=== PATIENT | male | born 1985 | race Caucasian/White ===

== ENCOUNTER 2016-08-28 20:21 | Emergency (ER) | payer BC ==
[2016-08-28] MEDS ORDERED: Diphtheria,Pertussis(Acell),Tetanus Vaccine 0.5 ML Syringe IM ONE (20:25)
[2016-08-28] MEDS ORDERED: ceFAZolin 1 GM Vial IM ONE (20:28)
[2016-08-28] MEDS ORDERED: Water For Injection, Sterile 20 ML ONE (20:39)
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
[2016-08-28] MEDS ORDERED: Lidocaine 1% 20 ML MDV ONE (21:19)
[2016-08-28] MEDS ORDERED: Bacitracin Oint 1 GM U/D Packet TOP ONE (21:36)
[2016-08-28 21:55] VITALS: BP 124/65
--- NOTE | 2016-08-29 11:27 | CR ---
EXAM DATE: 08/28/16 PATIENT'S AGE: 31 Patient: AMI ROLLE Facility: [place], [place] Site . Site : 1985 Study: XRay Extremity 2nd digit [id number] 8:47:24 PM Ordering Physician: Lucas Goldstein Final Report: INDICATION: Trauma left index finger. Technique :three-view study left index finger. Findings: No evidence of fracture or dislocation. No radioopaque foreign body . Impression: Negative radiographic examination of the left index finger. Dictated by Carlos Leblanc MD @ Aug 28 2016 8:48PM (Electronic Signature) Report Signed by Proxy and Original Signed Document filed in the Medical Record. MTDD
== END 2016-08-28 21:50 | disposition home or self-care (01) ==
LOC: MW.ED 20:21
DX: S61.211A Laceration without foreign body of left index finger without damage to nail, initial encounter (principal); S66.101A Unspecified injury of flexor muscle, fascia and tendon of left index finger at wrist and hand level, initial encounter; W26.0XXA Contact with knife, initial encounter; Z23 Encounter for immunization
CPT/HCPCS: 29130; 73140; 90471; 90715; 96372; 99283; J0690

== ENCOUNTER 2016-08-30 09:59 | Day surgery (SDC) | payer BC ==
--- NOTE | 2016-08-29 17:45 | PCM.PREANE ---
<Iván Balderrama E - Last Filed: 08/29/16 17:45> Preanesthetic Assessment - ANESTHESIA/TRANSFUSION/FAMILY HX Anesthesia/Transfusion History: Prior Anesthesia Family History of Anesthesia Reaction: No - REVIEW OF SYSTEMS Constitutional: Reports: no symptoms ESCORT PATIENTS: Reports: no symptoms Respiratory: Reports: no symptoms Cardiovascular: Reports: no symptoms GI: Reports: no symptoms Other: Reports: none - PHYSICAL ASSESSMENT Height: 1.68 m Weight: 77.111 kg ASA Class: 1 - ALLERGIES Allergies/Adverse Reactions: Allergies Allergy/AdvReac Type Severity Reaction Status Date / Time No Known Allergies Allergy Verified 08/28/16 20:25 - ANESTHESIA PLAN Anesthesia Type Planned: general anesthesia - ACKNOWLEDGEMENTS Pt an appropriate candidate for the planned anesthesia: Yes Alternatives and risks of anesthesia discussed w pt/guardian: Yes Pt/Guardian understands and agree with anesthesia plan: Yes PreAnesthesia Questionnaire HEENT History: Reports: None Cardiovascular History: Reports: None Respiratory History: Reports: None Gastrointestinal History: Reports: None Genitourinary History: Reports: None Musculoskeletal History: Reports: None Neurological History: Reports: None Psychiatric History: Reports: None Endocrine/Metabolic History: Reports: None Hematologic History: Reports: None Immunologic History: Reports: None Oncologic (Cancer) History: Reports: None Dermatologic History: Reports: None - Past Surgical History Head Surgeries/Procedures: Reports: None HEENT Surgical History: Reports: Other (see below) Other HEENT Surgeries/Procedures: cleft palate repair Respiratory Surgical History: Reports: None - SUBSTANCE USE Smoking Status *Q: Never Smoker Second Hand Smoke Exposure: No Recreational Drug Use History: No - HOME MEDS Home Medications: Home Meds . [No Known Home Meds] 08/28/16 [History] - CURRENT (IN HOUSE) MEDS Current Meds: Current Medications Acetaminophen/Hydrocodone Bitart ([place] 325-5 Mg) 1 tab PO Q4H PRN PRN Reason: Pain Fentanyl (Sublimaze) 50 mcg IVPUSH .Q5MIN PRN PRN Reason: Pain Stop: 09/03/16 08:23 Lactated Ringer's (Ringers, Lactated) 1,000 mls @ 125 mls/hr IV ASDIRECTED SANJUANA Discontinued Medications Bupivacaine HCl/Epinephrine Bitart (Marcaine 0.25%/Epinephrine 1:200,000) 10 ml INJECT ONETIME ONE Stop: 08/30/16 10:01 Bupivacaine HCl/Epinephrine Bitart (Marcaine 0.25%/Epinephrine 1:200,000) Confirm Administered Dose 20 ml .ROUTE .STK-MED ONE Stop: 08/30/16 07:34 Fentanyl (Sublimaze) Confirm Administered Dose 250 mcg .ROUTE .STK-MED ONE Stop: 08/30/16 07:33 Fentanyl (Sublimaze) Confirm Administered Dose 100 mcg .ROUTE .STK-MED ONE Stop: 08/30/16 09:27 Cefazolin Sodium/Dextrose 2 gm (/ Premix) 50 mls @ 100 mls/hr IV ONETIME ONE Stop: 08/30/16 10:29 Lidocaine (Xylocaine-Mpf 2%) Confirm Administered Dose 5 ml .ROUTE .STK-MED ONE Stop: 08/30/16 07:33 Midazolam HCl (Versed 1 Mg/Ml) Confirm Administered Dose 2 mg .ROUTE .STK-MED ONE Stop: 08/30/16 07:33 Midazolam HCl (Versed 1 Mg/Ml) Confirm Administered Dose 2 mg .ROUTE .STK-MED ONE Stop: 08/30/16 09:28 Ondansetron HCl (Zofran) Confirm Administered Dose 4 mg .ROUTE .STK-MED ONE Stop: 08/30/16 07:33 Propofol (Diprivan 20 Ml) Confirm Administered Dose 200 mg .ROUTE .STK-MED ONE Stop: 08/30/16 07:33 Propofol (Diprivan 20 Ml) Confirm Administered Dose 200 mg .ROUTE .STK-MED ONE Stop: 08/30/16 09:28 <Iván Wagner F - Last Filed: 08/30/16 10:42> Preanesthetic Assessment - ANESTHESIA/TRANSFUSION/FAMILY HX Anesthesia/Transfusion History: Prior Anesthesia Family History of Anesthesia Reaction: No - REVIEW OF SYSTEMS Constitutional: Reports: no symptoms ESCORT PATIENTS: Reports: no symptoms Respiratory: Reports: no symptoms Cardiovascular: Reports: no symptoms GI: Reports: no symptoms Other: Reports: none - PHYSICAL ASSESSMENT ASA Class: 2 Mental Status: alert & oriented x3 Airway Class: Mallampati = 1 Dentition: Reports: normal dentition ROM/Head Extension: full Respiratory Status: lungs clear to auscultation bilaterally Cardiovascular Status: regular rate & rhythm, normal S1, S2, no murmur - BLOOD Blood Available: No - ANESTHESIA PLAN Preop Beta Mercedes: No Anesthesia Type Planned: general anesthesia - ACKNOWLEDGEMENTS Pt an appropriate candidate for the planned anesthesia: Yes Alternatives and risks of anesthesia discussed w pt/guardian: Yes Pt/Guardian understands and agree with anesthesia plan: Yes
[~2016-08-30 09:59] MED LIST: Acetaminophen/HYDROcodone 325-5 MG Tab PO PRN; Bupivacaine 0.25%/EPINEPHrine 1:200,000 10 ML SDV ONE; Lactated Ringers 1,000 ML IV SCH; Lidocaine 2% 5 ML SDV ONE; Midazolam 1 MG/ML 2 ML SDV ONE; Ondansetron 4 MG/2 ML SDV ONE; Propofol 200 MG/20 ML SDV ONE; fentaNYL 100 MCG/2 ML SDV IVPUSH PRN; fentaNYL 100 MCG/2 ML SDV ONE; fentaNYL 250 MCG/5 ML SDV ONE
[2016-08-30] MEDS ORDERED: Bupivacaine 0.25%/EPINEPHrine 1:200,000 10 ML SDV INJECT ONE (10:00)
[2016-08-30] MEDS ORDERED: ceFAZolin 2 GM in Premix Bag 1 BAG IV ONE (10:00)
[2016-08-30] MEDS ORDERED: Dexamethasone 4 MG/ML 5 ML MDV ONE (13:31)
[2016-08-30] MEDS ORDERED: Ketorolac 30 MG/ML SDV ONE (13:31)
[2016-08-30] MEDS ORDERED: Ondansetron 4 MG/2 ML SDV ONE (13:31)
[2016-08-30] MEDS ORDERED: HYDROmorphone 2 MG/ML Syringe IVPUSH PRN (13:53)
--- NOTE | 2016-08-30 14:56 | PCM48HPAN ---
Post Anesthesia Note - EVALUATION WITHIN 48HRS OF ANESTHETIC Vital Signs in Normal Range: Yes Patient Participated in Evaluation: Yes Respiratory Function Stable: Yes Airway Patent: Yes Cardiovascular Function Stable: Yes Hydration Status Stable: Yes Pain Control Satisfactory: Yes Nausea and Vomiting Control Satisfactory: Yes Mental Status Recovered: Yes
--- NOTE | 2016-08-30 14:56 | PCM.POSTAN ---
POST ANESTHESIA ASSESSMENT - MENTAL STATUS Mental Status: alert, oriented - RESPIRATORY Respiratory Status: respiratory rate WNL, airway patent, O2 saturation stable - CARDIOVASCULAR CV Status: pulse rate WNL, blood pressure stable - GASTROINTESTINAL GI Status: no symptoms - POST OP HYDRATION Hydration Status: adequate & stable
[2016-08-30 16:19] VITALS: BP 118/66
--- NOTE | 2016-09-02 10:08 | PCM.OPNOTE ---
- General Post-Op/Procedure Note Date of Surgery/Procedure: 08/30/16 Operative Procedure(s): left index finger FDS and FDP tendon repairs in zone 2, repair of bilateral digital arteries to the left index finger and attempted arterial repair - failed. Pre Op Diagnosis: left index finger FDS and FDP tendon lacerations in zone 2, laceration of bilateral digital nerves to the left index finger Post-Op Diagnosis: left index finger FDS and FDP tendon lacerations in zone 2, laceration of bilateral digital nerves to the left index finger, and laceartion of bilateral digital arteries to the left index finger Anesthesia Technique: General LMA, Local Primary Surgeon: Faby Scott Bench Hand: Mary Ann Min Complications: unable to repair digital artery - no reflow. Condition: Good Free Text/Narrative:: [id number]
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
== END 2016-08-30 17:25 | disposition home or self-care (01) ==
LOC: MW.SDS 09:59
PROVIDERS: ATTEND Plastic Surgery
PROC: 0LQ80ZZ Repair Left Hand Tendon, Open Approach (ICD-10-PCS; principal; 2016-08-30)
DX: S66.121A Laceration of flexor muscle, fascia and tendon of left index finger at wrist and hand level, initial encounter (principal); S64.491A Injury of digital nerve of left index finger, initial encounter; W26.0XXA Contact with knife, initial encounter
CPT/HCPCS: 26356; 35207; 64831; 64832; J1100; J1885; J2250; J2405; J3010; J7120; 01810; J2704